=== PATIENT | female | born 1950 | race Caucasian/White ===

== ENCOUNTER 2021-01-23 08:50 | Emergency (ER) | payer OTHER ==
[~2021-01-23] VITALS: Ht 160 cm; Wt 81.0 kg
[2021-01-23 09:20] VITALS: BP 122/68
--- NOTE | 2021-01-23 09:27 | PHYS DOC ---
Past History Additional Past Medical Histor: DVT Past Surgical History: Cholecystectomy, Hysterectomy, Other Additional Past Surgical Histo: NECK, TOE SURGERY, ileal anal reservior Adult General Chief Complaint Chief Complaint: LOWER EXT PAIN HPI HPI Patient is a 70-year-old female presenting with via POV for left lower extremity pain. 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 Reports she was on Eliquis until June 2019 and has had no issues since. Reports she is done some recent travel to [place] but nothing as extensive as she used to do, reports 3-day history of left lateral low posterior pain and knee with some associated swelling which concerned her. Her just moved to local area, states she tried to esta blish care to be seen but this would not be done in a timely manner and so, she presented to our ER for evaluation. Review of Systems Review of Systems Fourteen body systems of review of systems have been reviewed. See HPI for pertinent positives and negative responses, other lama all other systems are negative, non-pertinent or non-contributory Physical Exam Physical Exam Constitutional: Well developed, well nourished, no acute distress, non-toxic appearance. HENT: Normocephalic, atraumatic, bilateral external ears normal, oropharynx moist, no oral exudates, nose normal. Eyes: PERRLA, EOMI, conjunctiva normal, no discharge. Neck: Normal range of motion, no tenderness, supple, no stridor. Cardiovascular: Heart rate regular, sinus rhythm, no murmurs rubs or gallops Lungs & Thorax: Bilateral breath sounds clear to auscultation Abdomen: Bowel sounds normal, soft, no tenderness, no masses, no pulsatile masses. Nonsurgical abdomen, no peritoneal signs Skin: Warm, dry, no erythema, no rash. Back: No tenderness, no CVA tenderness. Extremities: Mild tenderness present to posterior and lateral aspect of left knee without any impairment in range of motion, no joint laxity in all planes of motion, remaining examinations of left hip, femur, delatorre, ankle and foot are unremarkable. No cyanosis, no clubbing, ROM intact, no edema. Neurologic: Alert and oriented X 3, grossly normal motor & sensory function, no focal deficits noted. Psychologic: Affect normal, judgement normal, mood normal. Current Patient Data Vital Signs Vital Signs Date Time Temp Pulse Resp B/P (MAP) Pulse Ox O2 Delivery O2 Flow Rate FiO2 01/23/21 09:20 97.6 82 18 122/68 98 Room Air EKG EKG [] Radiology/Procedures Radiology/Procedures Left Leg Venous Doppler Ultrasound, 01/23/2021 9:42 AM Indication: Left leg pain and swelling, history of DVT Comparison: None available Procedure: Real-time grayscale, color flow color duplex Doppler and spectral analysis are obtained with and without compression in the area of the common femoral vein, superficial femoral vein - femoral vein junction, main femoral vein (superficial femoral vein) and popliteal vein. Veins of the proximal calf are also imaged. Findings: There is normal duplex flow, color flow and compressibility of all visualized vein segments. No evidence of deep venous thrombus is present. There is a small 4.1 x 3.0 x 1.1 cm Cool's cyst. Impression: Negative venous Doppler of left lower extremity. Small left Cool's cyst is seen Electronically signed by: Saundra Pagan MD (01/23/2021 9:59 AM) [facility] Heart Score C/O Chest Pain: No Risk Factors: Risk Factors: DM, Current or recent (<one month) smoker, HTN, HLP, family history of CAD, obesity. Risk Scores: Risk Factors: DM, Current or recent (<one month) smoker, HTN, HLP, family history of CAD, obesity. Course & Med Decision Making Course & Med Decision Making ABCs unremarkable. I disclosed entirety of ER findings and discussed most likely diagnosis of symptomatic left Cool's cyst. No indication for further diagnostic work-up or intervention in ER setting. Supportive care and close outpatient follow-up advised. Strict return precautions were also discussed at length with good understanding by patient. Patient voiced understanding and agreement with the plan. Patient knows to come back for repeat evaluation if concerning signs or symptoms present prior to outpatient follow-up. Hemodyn amically stable, ambulatory and well-appearing at time of disposition. Dragon Disclaimer Dragon Disclaimer This electronic medical record was generated, in whole or in part, using a voice recognition dictation system. Departure Departure: Impression: Primary Impression: Synovial cyst of popliteal space [Cool], left knee Disposition: HOME / SELF CARE / HOMELESS Condition: STABLE Referrals: PCP,NO (PCP) Patient Instructions: Cool's Cyst Additional Instructions: As discussed prior to your departure, your vital signs, physical examination and ultrasound were nonconcerning for any emergent or surgical issues. Your ultrasound did not show any concern for blood clot but there was a small Cool's cyst which is a small fluid-filled sign no real sac behind your knee. Treatment is typically conservative, I recommend taking ibuprofen and/or Tylenol as needed for pain and applying warm compresses. This is something that should be followed up on an outpatient setting with primary care physician. If any concerning signs or symptoms present prior to outpatient follow-up please do not hesitate to come back for repeat evaluation. It was a pleasure to take care of you and I wish you the best going forward MARRY HECK DO Jan 23, 2021 09:27
--- NOTE | 2021-01-23 10:01 | RAD ---
Left Leg Venous Doppler Ultrasound, 01/23/2021 9:42 AM Indication: Left leg pain and swelling, history of DVT Comparison: None available Procedure: Real-time grayscale, color flow color duplex Doppler and spectral analysis are obtained w ith and without compression in the area of the common femoral vein, superficial femoral vein - femora l vein junction, main femoral vein (superficial femoral vein) and popliteal vein. Veins of the proxim al calf are also imaged. Findings: There is normal duplex flow, color flow and compressibility of all visualized vein segment s. No evidence of deep venous thrombus is present. There is a small 4.1 x 3.0 x 1.1 cm Cool's cyst. Impression: Negative venous Doppler of left lower extremity. Small left Cool's cyst is seen Electronically signed by: Saundra Pagan MD (01/23/2021 9:59 AM) [facility]
== END 2021-01-23 10:50 | disposition home or self-care (01) ==
LOC: ER 08:50
DX: M71.22 Synovial cyst of popliteal space [Baker], left knee (principal); Z90.49 Acquired absence of other specified parts of digestive tract; Z90.710 Acquired absence of both cervix and uterus
CPT/HCPCS: 93971; 99284-25